=== PATIENT | female | born 1955 | race Caucasian/White ===

== ENCOUNTER 2017-03-01 00:59 | Emergency (ER) | payer OTHER ==
[~2017-03-01] VITALS: Ht 170.2 cm; Wt 84.4 kg
[~2017-03-01 00:59] MED LIST: CIPRO500 MG PO; NAPROSYN500 MG PO; PERCOCET 5/31 TABLET PO
[2017-03-01 01:38] LABS: HEMATOCRIT 41.4 % (36.0-46.0); MCH 27.9 PG (29.0-34.0); MCHC 34.3 G/DL (30.0-36.0); MCV 81.3 FL (83-99); MEAN PLAT.VOLUME 10.3 uM^3 (9.5-12.4); PLATELET COUNT 216 K/uL (156-360); RBC DIS.WIDTH-CV 12.7 % (11.8-14.6); RBC DIS.WIDTH-SD 37.9 % (39-53); RED BLOOD COUNT 5.09 M/uL (3.80-5.20); WHITE BLOOD COUNT 7.5 K/uL (4.1-10.2)
[2017-03-01 01:46] LABS: CHLORIDE 106 mEq/L (99-109); POTASSIUM 3.8 mEq/L (3.7-5.4); SODIUM 138 mEq/L (136-147)
[2017-03-01 01:49] LABS: GLUCOSE 177 mg/dL (70-99)
[2017-03-01 01:50] LABS: ANION GAP 12 MEQ/L (2-14); TOTAL BILIRUBIN 0.6 mg/dL (0.0-1.0)
[2017-03-01 01:52] LABS: ALKALINE PHOSPHATASE 77 IU/L (3-129); GFR ESTIMATE (CALCULATED) 44 mL/min/
[2017-03-01 01:53] LABS: UREA NITROGEN (BUN) 19 mg/dL (9-23)
[2017-03-01 01:54] LABS: DIRECT BILIRUBIN 0.3 mg/dL (0.0-0.3)
[2017-03-01 01:56] LABS: LIPASE 9 U/L (1.0-51.0)
[2017-03-01 02:00] LABS: ADD MIUA? YES; BILIRUBIN NEGATIVE; BLOOD SMALL; COLOR STRAW ((YELLOW)); GLUCOSE (STRIP) 150; KETONES 20; LEUKOCYTES NEGATIVE; NITRITE NEGATIVE; PROTEIN (STRIP) NEGATIVE; SPECIFIC GRAVITY 1.011 (1.000-1.030); UROBILINOGEN 0.2 MG/DL (0.2-1.0)
[2017-03-01 02:15] LABS: BACTERIA NONE SEEN /HPF; EPITHELIAL CELLS NONE SEEN /HPF; MUCUS TRACE /LPF; UCUL ADDED? NO; WHITE BLOOD CELLS 0-5 /HPF (0-5)
[2017-03-01] MEDS ORDERED: MOTRIN600 MG PO (03:11)
[2017-03-01] MEDS ORDERED: ZOFRAN ODT4 MG PO (03:11)
[2017-03-01] MEDS ORDERED: PERCOCET 5/31 TABLET PO (03:11)
[2017-03-01 03:31] VITALS: BP 152/68
== END 2017-03-01 03:32 | disposition home or self-care (01) ==
LOC: EME 00:59
PROVIDERS: Physician Assistant
DX: N20.1 Calculus of ureter (principal); Z87.442 Personal history of urinary calculi; Z88.2 Allergy status to sulfonamides
CPT/HCPCS: 74176; 80048; 80076; 81003; 83690; 85027; 99281; 99284; J1885; J2405; J3010; J7030